=== PATIENT | male | born 1995 | race Two or more races ===

== ENCOUNTER 2016-11-16 17:15 | Observation (INO) | payer OTHER ==
--- NOTE | 2016-11-16 17:57 | ER Document Report ---
HPI - HPI Patient complains to provider of: pilondial abscess Onset: Other - 2 wks Quality of pain: Achy Pain Level: 5 Context: Patient complains of draining pilonidal abscess for the past 2 weeks. Patient states that he was on a course of Bactrim but he finished that medicine 4 days ago. Patient reports low-grade fever of 99. Patient does report a previous history of HIV but states he has not had any detectable viral load for several years. Patient also reports previous history of high-grade epithelial lesion to the anus that was resected in the past. Associated Symptoms: Other - Pilonidal abscess Exacerbated by: Denies Relieved by: Denies Similar symptoms previously: No Recently seen / treated by doctor: Yes - ROS ROS below otherwise negative: Yes Systems Reviewed and Negative: Yes All other systems reviewed and negative - CONSTITUTIONAL Constitutional: REPORTS: Fever - Low-grade - GASTROINTESTINAL Gastrointestinal: DENIES: Abdominal Pain Notes: Pilonidal abscess - MUSCULOSKELETAL Musculoskeletal: DENIES: Extremity pain - DERM Skin Color: Normal Past Medical History - General Information source: Patient - Social History Smoking Status: Current Every Day Smoker Frequency of alcohol use: Occasional Drug Abuse: None Occupation: none Family History: Reviewed & Not Pertinent Renal/ Medical History: Denies: Hx Peritoneal Dialysis Psychiatric Medical History: Reports: Hx Anxiety, Hx Depression Infectious Medical History: Reports: Hx HIV Past Surgical History: Reports: Other - Rectal surgery Vertical Provider Document - CONSTITUTIONAL Agree With Documented VS: Yes Exam Limitations: No Limitations General Appearance: WD/WN, No Apparent Distress - INFECTION CONTROL TRAVEL OUTSIDE OF THE [place] IN LAST 30 DAYS: No - HEENT HEENT: Atraumatic, Normocephalic - NECK Neck: Normal Inspection, Supple - RESPIRATORY Respiratory: Breath Sounds Normal, No Respiratory Distress, Chest Non-Tender O2 Sat by Pulse Oximetry: 97 - CARDIOVASCULAR Cardiovascular: Regular Rate, Regular Rhythm, No Murmur - GI/ABDOMEN Notes: Patient with draining wound to the perianal area, no obvious inflammation, area is tender - BACK Back: Normal Inspection - MUSCULOSKELETAL/EXTREMETIES Musculoskeletal/Extremeties: MAEW - NEURO Level of Consciousness: Awake, Alert, Appropriate Motor/Sensory: No Motor Deficit - DERM Integumentary: Warm Course - Re-evaluation Re-evalutation: 11/16/16 17:[address] Gilbert who agrees to come and evaluate patient 11/16/16 19:25 dr Gilbert to bedside for examination - Vital Signs Vital signs: Temp Pulse Resp BP Pulse Ox 98.9 F 80 18 130/74 H 97 11/16/16 17:23 11/16/16 17:23 11/16/16 17:23 11/16/16 17:23 11/16/16 17:23 - Laboratory Result Diagrams: 11/16/16 18:49 11/16/16 18:49 Laboratory results interpreted by me: 11/16/16 20:43 Labs- Entire Visit 11/16/16 11/16/16 18:49 18:49 WBC 6.8 RBC 4.33 L Hgb 14.0 Hct 40.9 MCV 95 MCH 32.4 MCHC 34.3 RDW 13.3 Plt Count 259 Seg Neutrophils % 35.3 L Lymphocytes % 50.7 H Monocytes % 9.2 Eosinophils % 4.1 Basophils % 0.7 Absolute Neutrophils 2.4 Absolute Lymphocytes 3.5 Absolute Monocytes 0.6 Absolute Eosinophils 0.3 Absolute Basophils 0.0 Sodium 141.3 Potassium 4.3 Chloride 103 Carbon Dioxide 26 Anion Gap 12 BUN 15 Creatinine 0.98 Est GFR ( Amer) > 60 Est GFR (Non-Af Amer) > 60 Glucose 96 Calcium 9.5 Total Bilirubin 0.3 Direct Bilirubin 0.3 Indirect Bilirubin Not Reportable Neonat Total Bilirubin Not Reportable AST 22 ALT 33 Alkaline Phosphatase 108 Total Protein 7.6 Albumin 4.5 Discharge - Discharge Clinical Impression: Perianal abscess Condition: Stable Disposition: ADMITTED INPATIENT Admitting Provider: Surgicalist Unit Admitted: Medical Floor
[2016-11-16 19:04] LABS: ABSOLUTE EOSINOPHILS # (AUTO) 0.3 10^3/uL (0.0-0.6); ABSOLUTE LYMPHOCYTES (AUTO) 3.5 10^3/uL (0.5-4.7); ABSOLUTE MONOCYTES (AUTO) 0.6 10^3/uL (0.1-1.4); ABSOLUTE NEUT (AUTO) 2.4 10^3/uL (1.7-8.2); BASOPHILS % (AUTO) 0.7 % (0-2); EOSINOPHILS % (AUTO) 4.1 % (0-6); HEMATOCRIT 40.9 % (37.9-51.0); HGB HCT DIFFERENCE 1.1; LYMPHOCYTES % (AUTO) 50.7 % (13-45); MEAN CORPUSCULAR HEMOGLOBIN 32.4 pg (27.0-33.4); MEAN CORPUSCULAR HGB CONC 34.3 g/dL (32.0-36.0); MEAN CORPUSCULAR VOLUME 95 fl (80-97); MONOCYTES % (AUTO) 9.2 % (3-13); RED BLOOD COUNT 4.33 10^6/uL (4.35-5.55); RED CELL DISTRIBUTION WIDTH 13.3 % (11.5-14.0); SEGMENTED NEUTROPHILS % (AUTO) 35.3 % (42-78); WHITE BLOOD COUNT 6.8 10^3/uL (4.0-10.5)
[2016-11-16 19:25] LABS: ALANINE AMINOTRANSFERASE 33 U/L (21-72); ALBUMIN 4.5 g/dL (3.5-5.0); ALKALINE PHOSPHATASE 108 U/L (38-126); ANION GAP 12 (5-19); ASPARTATE AMINO TRANSFERASE 22 U/L (17-59); BILIRUBIN,DIRECT 0.3 mg/dL (0.0-0.4); BILIRUBIN,TOTAL 0.3 mg/dL (0.2-1.3); BLOOD UREA NITROGEN 15 mg/dL (7-20); CALCIUM 9.5 mg/dL (8.4-10.2); CARBON DIOXIDE 26 mmol/L (22-30); CHLORIDE 103 mmol/L (98-107); CREATININE RESULT 0.98 mg/dL (0.52-1.25); GLUCOSE 96 mg/dL (75-110); POTASSIUM 4.3 mmol/L (3.6-5.0); SODIUM 141.3 mmol/L (137-145); TOTAL PROTEIN 7.6 g/dL (6.3-8.2)
--- NOTE | 2016-11-16 20:44 | PDOC H&P ---
History of Present Illness Admission Date/PCP: 11/16/16 20:03 Patient complains of: Perirectal pain for 2 weeks. History of Present Illness: TIBURCIO CHUNG is a 21 year old male, who 2 weeks ago, noted purulent drainage from his rectum on his bed sheets. Patient experienced only small amount of pain, without fever or chills, or previous episodes. He has continued to note drainage over the last 10-12 days, with no improvement. When seen in the emergency room by me, he was noted to have a 3 mm opening at the 5:00 region of the perirectal area. Probed with a cotton tip applicator, it was noted that it was only 2 mm deep, with significant tenderness. Minimal purulence was noted at that time. Patient has been advised that he needed complete incision and drainage of the perirectal abscess with fistulotomy. He has agreed to this approach and is now admitted for this procedure to be done in the morning. Social History Smoking Status: Current Every Day Smoker Family History Parental Family History Reviewed: No Children Family History Reviewed: No Sibling(s) Family History Reviewed.: No Medication/Allergy Home Medications: Buspirone HCl [Buspar 5 mg Tablet] 5 mg PO DAILY 11/16/16 Dolutegravir Sodium [Tivicay] 0 tab PO DAILY 11/16/16 Emtricitabine/Tenofovir [Truvada Tablet] 1 tab PO DAILY 11/16/16 Fluoxetine HCl [Prozac] 10 mg PO DAILY 11/16/16 Allergies/Adverse Reactions: No Known Allergies Allergy (Unverified 11/16/16 17:24) Physical Exam Vital Signs: Temp Pulse Resp BP Pulse Ox 98.8 F 73 18 122/76 98 11/16/16 20:30 11/16/16 20:30 11/16/16 20:30 11/16/16 20:30 11/16/16 20:30 General appearance: PRESENT: no acute distress, cooperative, well-developed, well-nourished Eye exam: PRESENT: conjunctiva pink, EOMI, PERRLA Mouth exam: PRESENT: moist, neck supple Neck exam: PRESENT: full ROM. ABSENT: JVD, lymphadenopathy, tenderness, thyromegaly, tracheal deviation Cardiovascular exam: PRESENT: RRR GI/Abdominal exam: PRESENT: normal bowel sounds, soft. ABSENT: guarding, tenderness Rectal exam: PRESENT: tenderness, other - 3 mm opening at the 5 o'clock position of the perirectal region, with minimal purulent drainage. Probed with a cotton tip applicator reveals a depth of only 2 mm. Assessment & Plan - Plan Summary Plan Summary: He will be scheduled for completion incision and drainage of right perianal abscess, with fistulotomy in the a.m.
[2016-11-16] MEDS ORDERED: ONDANSETRON HCL INJ/PF 4 MG/2 ML SDV IV PRN (20:45)
[2016-11-16] MEDS: NORMAL SALINE 1000 ML 1,000 ML IV PRN (22:29)
[2016-11-16] MEDS: MORPHINE SULFATE 10 MG/ML INJ IV PRN (22:29)
[2016-11-17] MEDS: MORPHINE SULFATE 10 MG/ML INJ IV PRN ×3 (01:22→13:09)
[2016-11-17] MEDS ORDERED: ALBUTEROL SULFATE 0.083% NEB 2.5 MG/3 ML AMPUL NEB ONE ×2 (08:01→08:45)
[2016-11-17] MEDS ORDERED: LIDOCAINE 1% INJ-PF (10 MG/ML) 30 ML SDV ONE (08:11)
[2016-11-17] MEDS: NORMAL SALINE 1000 ML 1,000 ML IV PRN (08:20)
[2016-11-17] MEDS ORDERED: FENTANYL CITRATE INJ/PF 100 MCG/2 ML AMPUL ONE ×2 (08:27→11:01)
[2016-11-17] MEDS ORDERED: PROPOFOL INJ 200 MG/20 ML VIAL IV ONE ×2 (08:28→10:52)
[2016-11-17] MEDS ORDERED: MIDAZOLAM 2 MG/2 ML INJ ONE (08:28)
[2016-11-17] MEDS ORDERED: MORPHINE SULFATE 10 MG/ML INJ ONE (08:29)
[2016-11-17] MEDS ORDERED: CEFAZOLIN INJ 1 GM VIAL ONE (09:45)
[2016-11-17] MEDS ORDERED: MEPERIDINE HCL/PF INJ 25 MG/1 ML DISP.SYRIN IV PRN (09:54)
[2016-11-17] MEDS ORDERED: FENTANYL CITRATE INJ/PF 100 MCG/2 ML AMPUL IV PRN (09:54)
[2016-11-17] MEDS ORDERED: DIPHENHYDRAMINE HCL 50 MG/ML VIAL IV PRN (09:54)
[2016-11-17] MEDS ORDERED: DEXAMETHASONE SOD PHOSPHATE INJ 4 MG/1 ML VIAL ONE (10:00)
[2016-11-17] MEDS ORDERED: ONDANSETRON HCL INJ/PF 4 MG/2 ML SDV ONE (10:00)
[2016-11-17] MEDS ORDERED: LIDOCAINE 2% INJ-PF (20 MG/ML) 10 ML AMPUL ONE (10:00)
--- NOTE | 2016-11-17 10:53 | OPERATIVE REPORT E ---
Operative Report NAME: TIBURCIO CHUNG : 1995 AGE: 21Y DATE OF SURGERY: 11/17/2016 ROOM: 532 PREOPERATIVE DIAGNOSIS: [id number]. POSTOPERATIVE DIAGNOSIS: [id number]. PROCEDURE: Fistulotomy. SURGEON: RUSTAM VARGAS M.D. ANESTHESIA: Local/MAC. INDICATIONS: A 21-year-old male with noted pains along the perianal area. It appears that he has a fistula. DESCRIPTION OF PROCEDURE: After the patient was given general anesthesia through LMA, patient was placed in lithotomy position and the perianal area prepped and draped in the usual sterile fashion. Appropriate time out was then obtained. Next, a perianal examination was done and an opening noted posterior to the anal area about 2.5 cm. A probe was then passed from this site towards the rectal area. The probe was unable to be passed through but a smaller probe was then passed from inside the edge of the posterior rectum and this probe went into the area of the external opening about 2.5 cm. Next, a bigger probe was then placed and the fistula was subsequently opened from the rectal mucosa through a small area of rectal muscle down to the external opening. There was no evidence of abscess noted. The tract of the fistula was subsequently cauterized. There was a little bleeder at the upper part or close to the rectum that was controlled with a [id number]-iw-[id number] suture using 2-0 chromic catgut. The tract of the fistula was further enlarged distally to another 5 mm. This area was also cauterized. The fistula appears to be relatively superficial and Surgicel was then placed through the tract and also used as a packing. Two small pieces of Surgicel were used, each 2 x 2 inches. A sterile dressing was then placed over the operative site using 4 x 4 and ABD pad. The patient tolerated the procedure well. Needle, instrument and sponge counts were all correct. About 7 mL of Xylocaine was used. The patient tolerated the procedure well. Estimated blood loss was minimal. The patient was brought to the recovery room in satisfactory condition. DICTATING PHYSICIAN: RUSTAM VARGAS M.D. [id number] PHY#: [id number] ID: [id number] JOB#: [id number] ACCT: [id number] cc:RUSTAM VARGAS M.D. >
[2016-11-17] MEDS ORDERED: CIPROFLOXACIN HCL 500 MG TABLET PO ONE (13:00)
[2016-11-17] MEDS ORDERED: METRONIDAZOLE 500 MG TABLET PO SCH (14:00)
[2016-11-17 15:14] VITALS: BP 106/60
[2016-11-17] MEDS ORDERED: CIPROFLOXACIN HCL 500 MG TABLET PO SCH ×2 (22:00)
--- NOTE | 2016-11-17 23:58 | DISCHARGE SUMMARY E ---
Discharge Summary NAME: TIBURCIO CHUNG : 1995 AGE: 21Y ADMITTED: 11/16/2016 DISCHARGED: 11/17/2016 FINAL DIAGNOSIS: 1. Gycneht-cl-uhn. 2. Human immunodeficiency virus. PROCEDURE DONE: Fistulotomy, 11/17/2016. HOSPITAL COURSE: Patient underwent fistulotomy on 11/17/2016. The fistula area was impacted with Surgicel gauze being relatively superficial. The fistula was just inside the posterior rectum and drained close to the midline posteriorly about 2.5 cm distal to the rectum. Postoperatively, he did very well. He was advised to start hot sitz baths starting tomorrow and given prescription for Percocet to take one every 6 hours as needed for pain x20 and prescription for Cipro 500 mg p.o. b.i.d. for about 7 days. Patient to be followed up in the surgical clinic in 2 weeks. In the meantime, he is going to continue with his anti viral medications for HIV. DICTATING PHYSICIAN: RUSTAM VARGAS M.D. [id number] PHY#: [id number] ID: [id number] JOB#: [id number] ACCT: [id number] cc:Anju MONTOYA M.D. > MTDD
== END 2016-11-17 15:34 | disposition home or self-care (01) ==
LOC: ER 17:15 → EH 20:03 → UNDOADMIN 20:03 → EH 20:45 → INTOOBSV 20:45 → 5 21:30
PROVIDERS: ADMIT Surgery; ATTEND Surgery
PROC: 0DQP3ZZ Repair Rectum, Percutaneous Approach (ICD-10-PCS; 2016-11-17)
PROC: 0DQQ3ZZ Repair Anus, Percutaneous Approach (ICD-10-PCS; principal; 2016-11-17 09:00)
DX: K60.3 Anal fistula (principal); B20 Human immunodeficiency virus [HIV] disease; Z79.899 Other long term (current) drug therapy; F17.200 Nicotine dependence, unspecified, uncomplicated; Z98.890 Other specified postprocedural states; Z87.2 Personal history of diseases of the skin and subcutaneous tissue
CPT/HCPCS: 99285; 36415; 85025; 80053; 46999; G0378 ×2; J2250; J0690; J1100; J3010; J3490 ×2; J2270 ×2; J2405; J7030 ×2; J2704; 902

== ENCOUNTER 2016-11-30 10:08 | Emergency (ER) | payer OTHER ==
[2016-11-30 10:13] VITALS: BP 157/82
[2016-11-30] MEDS ORDERED: CEFTRIAXONE INJ 250 MG VIAL IM ONE (10:22)
[2016-11-30] MEDS ORDERED: LIDOCAINE 1% INJ-PF (10 MG/ML) 30 ML SDV INFIL ONE (10:22)
--- NOTE | 2016-11-30 10:30 | ER Document Report ---
ED General - General Chief Complaint: Post Surgical Pain Stated Complaint: PAIN,REDNESS AT SURGERY SITE Time Seen by Provider: 11/30/16 10:22 Mode of Arrival: Ambulatory Information source: Patient TRAVEL OUTSIDE OF THE [place] IN LAST 30 DAYS: No - HPI Patient complains to provider of: post-op infection Onset: Yesterday - pt has anal fistula surgery earlier this month and has noticed some redness around the surgical site -- denies fever - Related Data Allergies/Adverse Reactions: No Known Allergies Allergy (Verified 11/30/16 10:13) Past Medical History - General Information source: Patient - Social History Smoking Status: Current Every Day Smoker Cigarette use (# per day): Yes Chew tobacco use (# tins/day): No Smoking Education Provided: Yes Frequency of alcohol use: Occasional Drug Abuse: None Family History: Reviewed & Not Pertinent Renal/ Medical History: Denies: Hx Peritoneal Dialysis Psychiatric Medical History: Reports: Hx Anxiety, Hx Depression Infectious Medical History: Reports: Hx HIV Past Surgical History: Reports: Hx Rectal Surgery, Other - Rectal surgery - Immunizations Hx Diphtheria, Pertussis, Tetanus Vaccination: Yes Review of Systems - Review of Systems Constitutional: No symptoms reported EENT: No symptoms reported Cardiovascular: No symptoms reported Respiratory: No symptoms reported Gastrointestinal: See HPI Musculoskeletal: No symptoms reported -: Yes All other systems reviewed and negative Physical Exam - Vital signs Vitals: Temp Pulse Resp BP Pulse Ox 99.6 F 86 18 157/82 H 98 11/30/16 10:11 11/30/16 10:11 11/30/16 10:11 11/30/16 10:11 11/30/16 10:11 - General General appearance: Appears well In distress: None - Respiratory Respiratory status: No respiratory distress Breath sounds: Normal - Cardiovascular Rhythm: Regular Heart sounds: Normal auscultation - Rectal Tenderness: Yes - there is some erythema around with surgica site without purulent d/c Course - Vital Signs Vital signs: Temp Pulse Resp BP Pulse Ox 99.6 F 86 18 157/82 H 98 11/30/16 10:11 11/30/16 10:11 11/30/16 10:11 11/30/16 10:11 11/30/16 10:11 Discharge - Discharge Clinical Impression: Post op infection Qualifiers: Encounter type: initial encounter Qualified Code(s): T81.4XXA - Infection following a procedure, initial encounter Condition: Stable Disposition: HOME, SELF-CARE Additional Instructions: rest, take meds as prescribed, return if worse Prescriptions: Oxycodone HCl/Acetaminophen [Percocet 5-325 mg Tablet] 1 tab PO ASDIR PRN #15 tab PRN Reason: Sulfamethoxazole/Trimethoprim [Bactrim Ds Tablet] 1 each PO BID #14 tablet Referrals: JENNIFER RAHMAN MD [ACTIVE STAFF] - Follow up as needed
== END 2016-11-30 10:45 | disposition home or self-care (01) ==
LOC: ER 10:08
DX: T81.4XXA Infection following a procedure, initial encounter (principal); F17.210 Nicotine dependence, cigarettes, uncomplicated; Z21 Asymptomatic human immunodeficiency virus [HIV] infection status
CPT/HCPCS: 99283; 96372; J3490; J0696

== ENCOUNTER → 2019-07-30 | Outpatient (CLI) | payer OTHER ==
[2019-07-30 12:19] VITALS: BP 120/76
--- NOTE | 2019-07-30 12:19 | ER RDC ASSESSMENT REPORT ---
Intake - In the Last 14 days Have you been in close contact with someone CONFIRMED: Yes Worked in Healthcare?: No - Symptoms Subjective Fever([place] feverish): Yes Chills: Yes Muscule Aches: Yes Runny Nose: Yes Sore Throat: Yes Cough (New or worsening chronic cough): Yes Shortness of breath: No Nausea or Vomiting: Yes Headache: Yes Abdominal Pain: No Diarrhea(3 or more loose stools in last 24 hours): No - Do you have any of the following Chronic lung disease: Asthma or emphysema or COPD: No Cystic Fibrosis: No Diabetes: No High Blood Pressure: No Cardiovascular Disease: No Chronic Kidney Disease: No Chronic Liver Disease: No Chronic blood disorder like Sickle Cell Disease: No Weak immune system due to disease or medication: No Immune System Comment: Patient HIV positive Neurologic condition that limits movement: No Developmental delay - Moderate to Severe: No Recent (within past 2 weeks) or current : No Morbid Obesity (>100 pounds over ideal weight): No Obesity Comment: Height 5 feet 5 inches weight 200 pounds Other Comment: Patient states coworker was in contact with positive COVID patient - Objective Temperature: 97.5 F Pulse Rate: 82 Respiratory Rate: 20 Blood Pressure: 120/76 O2 Sat by Pulse Oximetry: 99 Objective: Given above, testing performed: If Testing Performed: Test Specimen Type Sent to General - General Information source: Patient Notes: Patient here to RTC for COVID testing. States coworker was exposed to someone that was positive for COVID and was in contact with a coworker last week. Started feeling sick this past week with chills muscle aches fever runny nose sore throat cough. Started feeling worse yesterday and this morning. [facility] and has not contacted PCP at this point. [facility] will call PCP today - Related Data Allergies/Adverse Reactions: No Known Allergies Allergy (Verified 11/30/16 10:13) Past Medical History - Social History Smoking Status: Current Every Day Smoker Cigarette use (# per day): Yes - In addition to smoking cigarettes he also vapes. Smoking Education Provided: Yes - Encouraged to stop smoking and vaping Family History: Reviewed & Not Pertinent Renal/ Medical History: Denies: Hx Peritoneal Dialysis Psychiatric Medical History: Reports: Hx Anxiety, Hx Depression Infectious Medical History: Reports: Hx HIV Past Surgical History: Reports: Hx Rectal Surgery, Other - Rectal surgery Physical Exam - General General appearance: Appears well, Alert In distress: None Notes: PHYSICAL EXAMINATION: GENERAL: Well-appearing and in no acute distress. HEAD: Atraumatic, normocephalic. EYES: sclera anicteric, conjunctiva are normal. ENT: nares patent. Moist mucous membranes. NECK: Normal range of motion, supple without lymphadenopathy LUNGS: CTAB and equal. No wheezes rales or rhonchi. Note dry cough. non productive. Resp even and unlabored. SLightly deminished sounds to left upper posterior. no wheezing. HEART: Regular rate and rhythm without murmurs ABDOMEN: Soft, nontender, normal bowel sounds, no guarding. EXTREMITIES: No cyanosis. NEUROLOGICAL:. Normal speech. PSYCH: Normal mood, normal affect. SKIN: Warm, Dry, normal turgor, Diagnostic Results Laboratory Results: Informed of negative rapid strep and negative rapid flu results . pending strep culture pending COVID testing results. Patient provided instructions regarding COVID to include: As a person under investigation for Covid 19, the [place] department of Health and Human Services, division of public health advises you to adhere to the following guidance until your test results are reported to you. If your test result is positive, you will receive additional information from your provider and your local health department at that time. Remain at home until you are cleared by the health provider or public health authorities. Keep a log of visitors to your home, notify any visitors to your home of your isolation status. If you plan to move to a new address or leave the formerly [facility], notify the local health department in your County. Call your doctor or seek care if you have an urgent medical need. Before seeking medical care, call ahead to get instructions from the provider before arriving at the medical office clinic or hospital. Notify them that you are being tested for the virus that causes Covid 19 so that arrangements can be made, as necessary, to prevent transmission to others in the healthcare setting. Next, notify the local health department in your county. If a medical emergency arises and you need to call 911, inform the first responders that you are being tested for the virus that causes Covid 19. Next, notify the local health department in your county. Patient Education/Counseling Counseling/Education: Patient presents with upper respiratory symptoms worrisome for possible Covid 19. Patient does not have emergency worring symptoms such as difficulty breathing, shortness of breath, chest pain, pressure, confusion or cyanosis. Patient appears suitable for discharge. In[facility]ed [facility] To ED for persistent or worsening symptoms. Patient's vital signs are stable and patient is nontoxic in appearance. Good return precautions have been discussed with patient, patient verbalized understanding and is agreeable with discharge plan of care at this time. RDC Discharge - Discharge Clinical Impression: COVID - 19 SCREENING Condition: Stable Disposition: Home; Selfcare
[2019-07-30 12:27] LABS: A TYPE INFLUENZA AG NEGATIVE (NEGATIVE); B INFLUENZA AG NEGATIVE (NEGATIVE)
== END ==
LOC: RDC 11:24
PROVIDERS: ATTEND Nurse Practitioner Family
DX: Z20.828 Contact with and (suspected) exposure to other viral communicable diseases (principal); R50.9 Fever, unspecified; M79.10 Myalgia, unspecified site; R05 Cough; R09.89 Other specified symptoms and signs involving the circulatory and respiratory systems; R11.0 Nausea; R51 Headache; J02.9 Acute pharyngitis, unspecified; R75 Inconclusive laboratory evidence of human immunodeficiency virus [HIV]; F17.210 Nicotine dependence, cigarettes, uncomplicated; F17.290 Nicotine dependence, other tobacco product, uncomplicated
CPT/HCPCS: 87070; 87635; 87804; 87880; 99211